=== PATIENT | male | born 1990 | race Caucasian/White ===

== ENCOUNTER 2016-10-22 12:27 | Emergency (ER) | payer MEDICAID ==
[~2016-10-22] VITALS: Ht 175.3 cm; Wt 83.9 kg
[2016-10-22 13:39] VITALS: BP 129/70
--- NOTE | 2016-10-22 13:47 | NUR ---
Patient being evaluated by physician at bedside. Addendum: 10/22/16 at 1444 by [email or web address] Amendment undone in EDM - 10/22/16 at 1446 by [email or web address] PT STS DON'T WANT PAIN MED AT THIS TIME.
[2016-10-22] MEDS ORDERED: KETOROLAC 30 MG/ML VIAL IVP ONE (13:50)
[2016-10-22] MEDS ORDERED: NACL 0.9% 1,000 ML IV ONE (13:50)
--- NOTE | 2016-10-22 14:04 | NUR ---
LAB AT BEDSIDE
--- NOTE | 2016-10-22 14:06 | NUR ---
PT TAKEN TO CT
--- NOTE | 2016-10-22 14:18 | NUR ---
PT BACK FROM CT
[2016-10-22 14:20] LABS: BASOPHILS # (AUTO) 0.3 K/uL (0.00-0.22); EOSINOPHILS # (AUTO) 0.3 K/uL (0-0.4); HEMATOCRIT 43.8 % (36-52); HEMOGLOBIN 14.4 g/dL (12.0-18.0); MEAN CORPUSCULAR HEMOGLOBIN 29 pg (27-31); MEAN CORPUSCULAR HGB CONC 33 g/dL (33-37); MEAN CORPUSCULAR VOLUME 87 fL (80-94); MONOCYTES # (AUTO) 0.9 K/uL (0.8-1.0); NEUTROPHILS # (AUTO) 2.8 K/uL (1.8-7.7); PLATELET COUNT (AUTO) 280 K/uL (140-450); RED BLOOD CELL COUNT(AUTO) 5.06 MIL/uL (4.20-6.10); RED CELL DISTRIBUTION WIDTH 12.5 % (11.6-13.7); WHITE BLOOD COUNT (AUTO) 6.4 K/uL (4.8-10.8)
[2016-10-22 14:24] LABS: APPEARANCE,URINE CLEAR (CLEAR); BILIRUBIN,URINE NEGATIVE (NEGATIVE); BLOOD, URINE NEGATIVE (NEGATIVE); COLOR,URINE YELLOW (YELLOW); LEUKOCYTE ESTERASE ,URINE NEGATIVE (NEGATIVE); NITRITE, URINE NEGATIVE (NEGATIVE); UGLUCOSE NEGATIVE (NEGATIVE)
[2016-10-22 14:35] LABS: ANION GAP 8.9 (8-16); CARBON DIOXIDE 29.1 mmol/L (21-32); CREATININE 0.9 mg/dL (0.7-1.3)
[2016-10-22 14:37] LABS: PROTHROMBIN TIME 10.7 secs (10.8-13.4)
--- NOTE | 2016-10-22 14:39 | NUR ---
INSERTED IV CATH 20G LAC; PT TOLERATED PROCEDURE WELL. IV PATENT/INTACT.
[2016-10-22 14:41] LABS: ALBUMIN 3.8 g/dL (3.4-5.0); TOTAL BILIRUBIN 0.4 mg/dL (0.0-1.0)
--- NOTE | 2016-10-22 15:00 | NUR ---
MOTHER AT BEDSIDE. PT STS ABD PAIN 04/18. Patient appears to be resting comfortably in bed. Vital Signs within normal limits. Respirations even and unlabored.WILL CONTINUE TO MONITOR.
[2016-10-22 15:31] VITALS: BP 128/71
== END 2016-10-22 15:31 | disposition home or self-care (01) ==
LOC: MED 12:27
DX: R10.31 Right lower quadrant pain (principal)
CPT/HCPCS: 36415; 74176; 80053; 81003; 82150; 83690; 85025; 85610; 85730; 96361; 96374; 99285; J1885; J7030

== ENCOUNTER 2023-04-20 16:35 | Emergency (ER) | payer MEDICAID ==
[~2023-04-20] VITALS: Ht 177.8 cm; Wt 89.8 kg
[2023-04-20 16:54] VITALS: BP 123/96; PULSE 90; RESP 18; TEMP 97.9; O2SAT 95
[2023-04-20] MEDS: IBUPROFEN 600 MG TAB PO ONE (17:34)
[2023-04-20] MEDS: BACITRACIN OINT 500 UNITS/GM PKT TP ONE (17:35)
[2023-04-20] MEDS ORDERED: IBUP-2213 PO (17:51)
[2023-04-20] MEDS ORDERED: BACI-418 TP (17:51)
== END 2023-04-20 17:58 | disposition home or self-care (01) ==
LOC: MED 16:35
DX: S80.211A Abrasion, right knee, initial encounter (principal); T24.231A Burn of second degree of right lower leg, initial encounter; Z79.899 Other long term (current) drug therapy; V29.99XA Rider (driver) (passenger) of other motorcycle injured in unspecified traffic accident, initial encounter; Y93.89 Activity, other specified; Y92.410 Unspecified street and highway as the place of occurrence of the external cause; Y99.8 Other external cause status
CPT/HCPCS: 16020; 29505; 73564; 73610; 99284